=== PATIENT | female | born 1985 | race Hispanic/Latino ===

== ENCOUNTER 2017-07-08 17:54 | Emergency (ER) | payer OTHER ==
[2017-07-08 17:54] VITALS: BMI 24.0
[2017-07-08 17:58] VITALS: O2SAT 100
--- NOTE | 2017-07-08 20:39 | C.PDOC ---
History Of Present Illness 31 y/o female with a hx of PCP abuse, presents with reported intoxication of PCP. Patient admits to smoking PCP today stating, "she messed up" and that she used pcp. . Patient is currently awake and oriented in the ER and denies hallucination, SI, HI, or any somatic complaints. pt not agitated in er, calm cooperative, denies any pyschiatric complaints. asking for dc. 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 no agitation or pychosis. Time Seen by Provider: 07/08/17 17:57 Chief Complaint (Nursing): Substance Abuse History Per: Patient History/Exam Limitations: no limitations Onset/Duration Of Symptoms: Hrs Current Symptoms Are (Timing): Still Present Suicide/Self Injury Attempted (Context): None Modifying Factor(s): Other (PCP) Severity: Mild Associated Symptoms: denies: Suicidal Thoughts, Suicidal Plan Involuntary Hold By: None Recent travel outside of the [place]: No Additional History Per: Patient Past Medical History Reviewed: Historical Data, Nursing Documentation, Vital Signs Vital Signs: Last Vital Signs Temp 98 F 07/08/17 21:04 Pulse 72 07/08/17 21:04 Resp 16 07/08/17 21:04 BP 145/73 07/08/17 21:04 Pulse Ox 100 07/08/17 21:04 - Medical History PMH: Denies: Diabetes, Hepatitis, HIV, HTN, Chronic Kidney Disease, Seizures, Sexually Transmitted Disease - [facility] Procedures OTHER CAST APPLICATION (10/02/04) Family History: States: Unknown Family Hx - Social History Hx Tobacco Use: Yes Hx Alcohol Use: Yes Hx Substance Use: Yes Review Of Systems Except As Marked, All Systems Reviewed And Found Negative. Constitutional: Positive for: Other (PCP abuse) Psych: Negative for: Psychosis, Suicidal ideation, Other (HI) Physical Exam - Physical Exam Appears: Non-toxic, No Acute Distress Skin: Warm, Dry Head: Atraumatic, Normacephalic Eye(s): bilateral: Normal Inspection, PERRL, EOMI Ear(s): Bilateral: Normal Oral Mucosa: Moist Throat: Normal, No Erythema Cardiovascular: Rhythm Regular Respiratory: Normal Breath Sounds, No Rales, No Rhonchi, No Wheezing Gastrointestinal/Abdominal: Soft, No Tenderness Extremity: Other ((+)3 cm laceration with 9 sutures c/d/i) Neurological/Psych: Oriented x3, Normal Speech, Normal Cognition, Other (No focal deficit) Gait: Steady ED Course And Treatment O2 Sat by Pulse Oximetry: 100 (RA) Pulse Ox Interpretation: Normal Medical Decision Making Medical Decision Making: pt also request removal of previous right leg sutures placed 2 weeks ago at another insitution. right leg would c/d/i n oerythema, no e/o of drainage infection. pt reports 9 sutures in leg (states 1 fell out) Disposition - Disposition Referrals: [facility] [Outside] [facility] [Outside] Disposition: HOME/ ROUTINE Disposition Time: 21:00 Condition: STABLE Additional Instructions: return to er with worsening symptoms or concerns. Instructions: Polysubstance Abuse (ED) Forms: [facility] ([place]) - Clinical Impression Clinical Impression: PCP (phencyclidine) abuse - Scribe Statement The provider has reviewed the documentation as recorded by the Scribe Kyle cruz All medical record entries made by the Scribe were at my direction and personally dictated by me. I have reviewed the chart and agree that the record accurately reflects my personal performance of the history, physical exam, medical decision making, and the department course for this patient. I have also personally directed, reviewed, and agree with the discharge instructions and disposition.
[2017-07-08 21:07] VITALS: BP 145/73; PULSE 72; RESP 16; TEMP 98
== END 2017-07-08 21:07 | disposition home or self-care (01) ==
LOC: C.ER 17:54
DX: F16.10 Hallucinogen abuse, uncomplicated (principal)